=== PATIENT | male | born 1985 | race Caucasian/White ===

== ENCOUNTER 2019-07-22 08:30 | Outpatient (CLI) | payer BC, SELFPAY ==
--- NOTE | 2019-07-22 08:39 | EST_ITS ---
Patient Info Name: Elias Taylor Age: 34 years : 1985 Gender: Male Ht: 70 in Wt: 230 lbs BSA: 2.30 m2 Exam Date: 07/22/2019 8:53 AM Exam Location: [facility] Stress Patient Status: Outpatient Admit Date: 07/22/2019 Staff Ordering Physician: Swapnil Martin DO Attending Provider: Swapnil Martin DO Exercise Technologist: Brenda Devi RDCS Exercise Physician: Swapnil Martin DO Exam Type: CA stress test treadmill Study Info Indications R07.89 - Other chest pain A treadmill exercise stress test was performed. History/Risk Factors Hypertension: Yes Summary 1. 1. Negative Don exercise stress test for ischemic ST changes by ECG criteria. 2. 2. Good functional capacity, achieving 12 METs of workload. 3. 3. Appropriate HR response to exercise. 4. 4. Appropriate HR recovery at 1 minute post exercise. 5. 5. No imaging with stress testing. 6. 6. Patient informed of the above results. Protocol: Don Stress ECG Details Stage: REST Duration (min): 6 min : 2 sec Speed (mph): 0.0 Grade (%): 0 HR (bpm): 93 SBP (mmHg): 134 DBP (mmHg): 68 METS: --- Stage: REST Duration (min): 9 min : 18 sec Speed (mph): 0.0 Grade (%): 0 HR (bpm): --- SBP (mmHg): 134 DBP (mmHg): 68 METS: --- Stage: STAGE 1 Duration (min): 1 min : 0 sec Speed (mph): 1.7 Grade (%): 10 HR (bpm): 107 SBP (mmHg): 134 DBP (mmHg): 68 METS: --- Stage: STAGE 1 Duration (min): 2 min : 0 sec Speed (mph): 1.7 Grade (%): 10 HR (bpm): 116 SBP (mmHg): 134 DBP (mmHg): 68 METS: --- Stage: STAGE 1 Duration (min): 3 min : 0 sec Speed (mph): 1.7 Grade (%): 10 HR (bpm): 113 SBP (mmHg): 156 DBP (mmHg): 67 METS: --- Stage: STAGE 2 Duration (min): 1 min : 0 sec Speed (mph): 2.5 Grade (%): 12 HR (bpm): 124 SBP (mmHg): 156 DBP (mmHg): 67 METS: --- Stage: STAGE 2 Duration (min): 2 min : 0 sec Speed (mph): 2.5 Grade (%): 12 HR (bpm): 132 SBP (mmHg): 158 DBP (mmHg): 65 METS: --- Stage: STAGE 2 Duration (min): 3 min : 0 sec Speed (mph): 2.5 Grade (%): 12 HR (bpm): 139 SBP (mmHg): 158 DBP (mmHg): 65 METS: --- Stage: STAGE 3 Duration (min): 1 min : 0 sec Speed (mph): 3.4 Grade (%): 14 HR (bpm): 149 SBP (mmHg): 150 DBP (mmHg): 66 METS: --- Stage: STAGE 3 Duration (min): 2 min : 0 sec Speed (mph): 3.4 Grade (%): 14 HR (bpm): 154 SBP (mmHg): 150 DBP (mmHg): 66 METS: --- Stage: STAGE 3 Duration (min): 3 min : 0 sec Speed (mph): 3.4 Grade (%): 14 HR (bpm): 160 SBP (mmHg): 162 DBP (mmHg): 69 METS: --- Stage: STAGE 4 Duration (min): 1 min : 0 sec Speed (mph): 4.2 Grade (%): 16 HR (bpm): 168 SBP (mmHg): 162 DBP (mmHg): 69 METS: --- Stage: STAGE 4 Durat
== END 2019-07-22 08:31 | disposition home or self-care (01) ==
PROVIDERS: PCP Family Medicine; Visit Provider Internal Medicine Cardiovascular Disease
DX: R07.9 Chest pain, unspecified (principal)
CPT/HCPCS: 93017

== ENCOUNTER 2023-06-15 10:15 | Emergency (ER) | payer BC, SELFPAY ==
--- NOTE | ~2023-06-15 | CT_ITS ---
CT of the Abdomen and Pelvis: Indication: Hernia Technique: 2.5 mm axial scans were obtained through the abdomen and pelvis following intravenous adm inistration of 100 cc of Omnipaque 350. Dose reduction technique was used on this scan by utilizing a utomated exposure control and iterative reconstruction technique. The dose-length product (DLP) was 1 517.21 mGy-cm. Findings: Scans through the lung bases are unremarkable. The liver, spleen, pancreas, gallbladder, and adrenal glands are within normal limits. There is a kelsie y subtle hypodense area in the anterior aspect of the lower pole the left kidney (axial image 79). Th ere is a 2 cm ovoid hypodense area in the right renal cortex of (axial image 73). No evidence of aort ic aneurysm. No lymphadenopathy. No bowel obstruction or bowel wall thickening. There is no evidence to suggest acute appendicitis. Sm all fat-containing umbilical hernia noted. Images through the pelvis were performed. Urinary bladder unremarkable. No pelvic mass seen. No ascit es. Impression: Very subtle hypodense area in the left kidney inferiorly, as detailed above. Mass lesion or pyeloneph ritis are considerations. Correlate clinically. 2 cm ovoid hypodense area in the right renal cortex, which could reflect mass lesion. Pre and postcon trast MR should be considered for further evaluation. Small fat-containing umbilical hernia. Reviewed, dictated and finalized at [facility]. [employer] INSTRUCTOR Impression: Very subtle hypodense area in the left kidney inferiorly, as detailed above. Ma ss lesion or pyelonephritis are considerations. Correlate clinically. 2 cm ovoid hypodense area in the right renal cortex, which could reflect mass l esion. Pre and postcontrast MR should be considered for further evaluation. Small fat-containing umbilical hernia.
[2023-06-15 10:24] VITALS: BP 146/83; PULSE 84; RESP 16; TEMP 36.3; O2SAT 100
[2023-06-15 11:14] LABS: Appearance Urine Clear (Clear); Bacteria Urine None Seen /hpf; Bilirubin Urine Negative (Negative); Blood Urine Negative (Negative); Color Urine Yellow (Yellow); Glucose Urine UA Negative (Negative); Ketones Urine Negative (Negative); Leukocyte Esterase Ur Negative LEU/UL (Negative); Nitrate Urine Negative (Negative); Non Pathogenic Casts 0-2; Protein Urine 3+ mg/dL (Negative); RBC Urine 0-2 /hpf (0-2); Specific Grav Ur 1.015 (1.001-1.035); Squamous Epithelial Cell Urine None seen /hpf (Few); WBC Urine 0-5 /hpf; pH Urine 7.5 (5.0-9.0)
[2023-06-15 11:23] LABS: Add Urine Microscopic? YES
[2023-06-15 11:36] VITALS: BP 132/70; PULSE 87; RESP 15; O2SAT 99
[2023-06-15 11:59] LABS: Basophils Absolute Auto 0.1 K/mm3 (0.0-0.1); Basophils Percent Auto 0.9 % (0.2-1.2); Eosinophils Absolute Auto 0.1 K/mm3 (0-0.3); Eosinophils Percent Auto 0.9 % (0-4.4); Hematocrit 49.8 % (42.0-52.0); Hemoglobin 15.7 g/dL (14.0-18.0); Immature Granulocyte Absolute 0.03 K/mm3 (0.00-0.031); Immature Granulocyte Percent A 0.3 % (0-0.5); Lymphocytes Absolute Auto 1.84 K/mm3 (0.9-3.2); Lymphocytes Percent Auto 17.5 % (18.3-44.2); Mean Corpuscular HGB Conc 31.5 g/dl (32-36); Mean Corpuscular Hemoglobin 26.9 pg (26-34); Mean Corpuscular Volume 85.3 fl (80-100); Mean Platelet Volume 9.7 fl (7.4-10.4); Monocytes Absolute Auto 0.8 K/mm3 (0.1-0.6); Monocytes Percent Auto 7.8 % (2.6-8.5); Neutrophils Absolute Auto 7.7 K/mm3 (1.3-6.7); Neutrophils Percent Auto 72.6 % (45.5-73.1); Platelet Count Result 293 k/mm3 (150-375); Red Blood Count 5.84 M/mm3 (4.6-6.20); Red Cell Distribution Width 12.9 % (11.5-14.5); White Blood Count 10.5 K/mm3 (4.5-10.0)
--- NOTE | 2023-06-15 12:00 | ED.ABDPAIN ---
HPI - Abdominal Pain General Chief Complaint: Abdominal Pain Stated Complaint: hernia Time Seen by Provider: 06/15/23 11:56 Source: patient and family Mode of arrival: ambulatory Limitations: no limitations History of Present Illness HPI narrative: 38 yo presents with concern for hernia. Patient was seen by PCP's (Dr Umanzor) JAILYN (Neelima) today for abdominal pain and they were concerned for hernia during their physical exam. Patient has been having pain for 5 days. LBM today, normal. No prior knowledge of a hernia but he noticed a bump on his abdomen Monday after/while picking up/lifting his son. No nausea or vomiting. Has not taken anything for pain. No prior abdominal surgeries except kidney biopsy for IgA nephropathy. Related Data Home Medications Medication Instructions Recorded Confirmed omega-3 fatty acids-fish oil 360 2 cap PO BID 09/14/22 06/15/23 mg-1,200 mg capsule (Fish Oil) Allergies Allergy/AdvReac Type Severity Reaction Status Date / Time Honey Bee Allergy Unknown Dyspnea / Uncoded 06/15/23 09:26 SOB PMFSH Past Medical History Medical History Anxiety CKD (chronic kidney disease) stage 3, GFR 30-59 ml/min Dyslipidemia Environmental allergies Hypertension IgA nephropathy determined by renal biopsy Insect bite of left hand Surgical History Surgical History No significant past surgical history Family History Family History Grandparent Family history of cardiovascular disease Family history of Alzheimer's disease Family history of coronary artery disease Family history of malignant neoplasm of breast in first degree relative Mother Family history of kidney disease Father Family history of seizure disorder Social History Social History (Updated 06/18/23 @ 11:53 by Lori Noel MD) Smoking status: Never smoker Second hand tobacco smoke exposure: No Alcohol intake: current Alcohol use details: Occasional Substance use: never Substance use type: does not use Lack of Transportation: No Lack of Food: Never True Current Housing: I Have Housing Concerned About Future Housing: No Difficulty Paying Gas/Electric Bills: No Difficulty Paying for Meds: No Currently Unemployed: No Education: High School Diploma/GED Difficulty w/ Childcare or Family Care: No Living arrangements: with family Additional living arrangements comments: , has a son Occupation/Education: occupation Gender identity (if verbalized by the patient): Male Spiritual care concerns: Yes Agree to blood products: Yes Exam Narrative: GENERAL: Well-appearing, well-nourished, and in no acute distress. HEAD: Normocephalic, atraumatic. EYES: Non injected, non icteric ENT: Nares clear, no rhinorrhea or epistaxis. NECK: Supple. CHEST: Speakign in full sentences. No respiratory distress. HEART: Regular rate and rhythm. . ABDOMEN: Soft, obese. nondistended. Tenderness to palpation along LUQ which causes guarding. No overlying skin changes/bruising. Appropriately tympanic. EXTREMITIES: Normal range of motion. No edema. SKIN: Warm, dry, no rash. NEURO: No focal deficits. Alert and oriented x3. PSYCH: Normal mood and affect. Course Vital Signs Vital signs: Vital Signs Temperature 97.3 F L 06/15/23 10:24 Pulse Rate 84 06/15/23 10:24 Respiratory Rate 16 06/15/23 10:24 Blood Pressure 146/83 H 06/15/23 10:24 Pulse Oximetry 100 06/15/23 10:24 Temperature 97.3 F L 06/15/23 10:24 Pulse Rate 88 06/15/23 13:58 Respiratory Rate 18 06/15/23 13:58 Blood Pressure 130/80 06/15/23 13:58 Pulse Oximetry 98 06/15/23 13:58 MDM - Abdominal Pain MDM Narrative Medical decision making narrative: Patient presents from PCP after concern for a hernia. Patient started havin
[2023-06-15 12:10] LABS: Alanine Aminotransferase 41 U/L (6-50); Albumin Level 4.5 g/dL (3.5-5.1); Alkaline Phosphatase 65 U/L (38-126); Anion Gap 7 mmol/L (8-16); Aspartate Amino Transferase 31 U/L (17-59); Bilirubin,Total 0.7 mg/dL (0.2-1.3); Blood Urea Nitrogen 20 mg/dL (9-20); Carbon Dioxide 27 mmol/L (22-30); Chloride 102 mmol/L (98-107); Estimated CRCL calculation 96 ml/min; Estimated Glomerular Filt Rate > 60; Glucose 106 mg/dL (65-110); Lipase 99 U/L (23-300); Potassium 4.3 mmol/L (3.4-5.0); Sodium 136 mmol/L (137-145)
[2023-06-15 13:58] VITALS: BP 130/80; PULSE 88; RESP 18; O2SAT 98
== END 2023-06-15 14:00 | disposition home or self-care (01) ==
PROVIDERS: Student in an Organized Health Care Education/Training Program; Emergency Provider Student in an Organized Health Care Education/Training Program; PCP Family Medicine
DX: K42.9 Umbilical hernia without obstruction or gangrene (principal); R80.9 Proteinuria, unspecified; N28.9 Disorder of kidney and ureter, unspecified; I12.9 Hypertensive chronic kidney disease with stage 1 through stage 4 chronic kidney disease, or unspecified chronic kidney disease; N18.30 Chronic kidney disease, stage 3 unspecified; E78.5 Hyperlipidemia, unspecified; F41.9 Anxiety disorder, unspecified
CPT/HCPCS: 36415; 74177; 80053; 81001; 83690; 85025; 99284; Q9967

== ENCOUNTER 2024-02-13 10:45 | Emergency (ER) | payer BC, SELFPAY ==
--- NOTE | ~2024-02-13 | XR_ITS ---
EXAMINATION: XR chest 2V DATE: 02/13/2024 11:27 INDICATION: Palpitations. TECHNIQUE: Frontal and lateral views of the chest were obtained. COMPARISON: Chest 2 views 03/13/2018, CT abdomen and pelvis 06/15/2023 FINDINGS: There is no pneumonia, pleural effusion, or pneumothorax. The heart size is normal. IMPRESSION: 1. No acute cardiopulmonary disease. Reviewed, dictated and finalized at location [facility]. [facility]
[2024-02-13 10:49] VITALS: BP 156/69; PULSE 78; RESP 16; TEMP 36.6; O2SAT 98
--- NOTE | 2024-02-13 10:49 | ECG_ITS ---
Test Date: 2024-02-13 10:55:40 Measurements Intervals [place] Rate: 98 P: 21 NE: 116 QRS: 66 QRSD: 98 T: 13 QT: 341 QTc: 436 Interpretive Statements SINUS RHYTHM ATRIAL PREMATURE COMPLEXES MINIMAL Q WAVES- INFERIOR LEADS BORDERLINE ST-T WAVE ABNORMALITY- INFERIOR LEADS BORDERLINE ECG No previous ECG available for comparison Electronically Signed On 02-13-2024 11:31:15 [facility] by Swapnil Martin D.O.
[2024-02-13 10:55] VITALS: PULSE 95
[2024-02-13 11:06] LABS: Basophils Absolute Auto 0.1 K/mm3 (0.0-0.1); Basophils Percent Auto 0.8 % (0.2-1.2); Eosinophils Absolute Auto 0.1 K/mm3 (0-0.3); Eosinophils Percent Auto 0.7 % (0-4.4); Hematocrit 48.7 % (42.0-52.0); Hemoglobin 16.3 g/dL (14.0-18.0); Immature Granulocyte Absolute 0.04 K/mm3 (0.00-0.031); Immature Granulocyte Percent A 0.4 % (0-0.5); Lymphocytes Absolute Auto 2.11 K/mm3 (0.9-3.2); Lymphocytes Percent Auto 21.7 % (18.3-44.2); Mean Corpuscular HGB Conc 33.5 g/dl (32-36); Mean Corpuscular Hemoglobin 28.1 pg (26-34); Mean Corpuscular Volume 83.8 fl (80-100); Mean Platelet Volume 9.8 fl (7.4-10.4); Monocytes Absolute Auto 0.7 K/mm3 (0.1-0.6); Monocytes Percent Auto 7.1 % (2.6-8.5); Neutrophils Absolute Auto 6.7 K/mm3 (1.3-6.7); Neutrophils Percent Auto 69.3 % (45.5-73.1); Platelet Count Result 286 k/mm3 (150-375); Red Blood Count 5.81 M/mm3 (4.6-6.20); Red Cell Distribution Width 12.7 % (11.5-14.5); White Blood Count 9.7 K/mm3 (4.5-10.0)
--- NOTE | 2024-02-13 11:08 | ED.ARRPALP ---
HPI - Arrhythmia/Palpitations General Chief Complaint: Arrhythmia/Palpitations Stated Complaint: hard heartbeats Time Seen by Provider: 02/13/24 10:49 Source: patient Mode of arrival: ambulatory Limitations: no limitations History of Present Illness HPI narrative: Patient is a 38-year-old male, with PMH of IgA nephropathy (sees Dr. Suarez), who presents to the ED with report of palpitations. Patient reports he has been having intermittent heart palpitations, described as though he will have a hard heart beat every once in a while followed by a short pause. He denies feeling as though his heart is racing. He states he was evaluated for similar palpitations several years ago by Dr. Martin and underwent cardiac stress testing, Holter monitor without significant findings. He is currently on diltiazem 420 mg daily for palpitations. He began noticing the palpitations again more frequently last night into today. Denies significant aggravating factors. Denies chest pain, shortness breath, recent cough or cold symptoms, fevers, lower extremity pain or swelling. Related Data Home Medications Medication Instructions Recorded Confirmed omega-3 fatty acids-fish oil 360 2 cap PO BID 09/14/22 09/23/23 mg-1,200 mg capsule (Fish Oil) Allergies Allergy/AdvReac Type Severity Reaction Status Date / Time Honey Bee Allergy Unknown Dyspnea / Uncoded 02/13/24 10:57 SOB Review of Systems Review of Systems: All systems reviewed & are unremarkable except as noted in HPI. All systems reviewed & are unremarkable except as noted in HPI and below PMFSH Past Medical History Medical History Anxiety CKD (chronic kidney disease) stage 3, GFR 30-59 ml/min Dyslipidemia Environmental allergies Hypertension IgA nephropathy determined by renal biopsy Insect bite of left hand Surgical History Surgical History No significant past surgical history Family History Family History Grandparent Family history of cardiovascular disease Family history of Alzheimer's disease Family history of coronary artery disease Family history of malignant neoplasm of breast in first degree relative Mother Family history of kidney disease Father Family history of seizure disorder Social History Social History Smoking status: Never smoker Second hand tobacco smoke exposure: No Alcohol intake: current Alcohol use details: Occasional Substance use: never Substance use type: does not use Do You Feel Safe in your Home?: Yes Lack of Transportation: No Lack of Food: Never True Current Housing: I Have Housing Concerned About Future Housing: No Difficulty Paying Gas/Electric Bills: No Difficulty Paying for Meds: No Currently Unemployed: No Education: High School Diploma/GED Difficulty w/ Childcare or Family Care: No Living arrangements: with family Additional living arrangements comments: , has a son Occupation/Education: occupation Gender identity (if verbalized by the patient): Male Spiritual care concerns: Yes Agree to blood products: Yes Exam Narrative: GENERAL: Well appearing, obese with BMI of 35.7, non-toxic, in no acute distress. HEAD: Normocephalic, atraumatic. RESPIRATORY: Airway patent, respirations nonlabored. Clear to auscultation bilaterally, no rales, rhonchi, wheezing. CARDIOVASCULAR: Regular rate and rhythm without murmurs. Intermittent ectopy noted on monitoring engineer and with auscultation. MUSCULOSKELETAL: Moves all extremities. No gross deformities. SKIN: Warm, dry, normal color. NEURO: A&O X3. Speech clear. PSYCHIATRIC: Appropriate mood and affect. Normal interaction. Course Vital Signs Vital signs: Vital Signs Temperature 97.8 F 02/13/24 10:49 Pulse Rate 78 02/13/24 10:49 Respiratory Rate 16 02/13/24 10:49 Blood Pressure 156/69 H 02/13/24 10:49 Pulse Oximetry 98 02/13/24 10:49 Temperature 97.8 F 02/13/24 10:49 Pulse Rate 82 02/13/24 12:22 Respiratory Rate 18 02/13/24 12:22 Blood Pressure 127/71 02/13/24 12:22 Pulse Oximetry 97 02/13/24 12:22 MDM - Arrhythmia/Palpitations MDM Narrative Medical decision making narrative: Patient presents to ED with palpitations. History of similar several years ago and underwent cardiac workup which was fairly unremarkable. Currently on Diltiazem. Vital signs are stable upon arrival. Heart rate is stable. On auscultation, I was able to appreciate ectopy, which correlated with ectopy seen on monitoring engineer and correlated with patient's symptoms. Frequent PACs were noted on patient's EKG. Discussed this with patient. Laboratory studies were obtained and fairly unremarkable. Stable electrolytes. Magnesium was borderline low at 1.7. Replaced IV. Troponin was undetectable. TSH WNL. Discussed case with Dr. Martin, cardiology, who patient has seen for these palpitations in the past. Agreed with plan for a repeat Holter monitor to determine ectopy burden, potential for future ablation. Recommended to have patient follow-up in office for evaluation of this. Patient is in agreement with this. He was given 1 L fluid bolus in the ED and is feeling significantly better on re-evaluation. He states palpitations have decreased in frequency/severity. He feels comfortable going home at this time. Discussed strict return precautions. He agrees with plan. Discharged in stable condition. Vital signs stable at time of D/C. Medical Records Attestation: I reviewed the patient's medical records. Lab Data Attestation: I reviewed the patient's lab results. 02/13/24 11:01 02/13/24 11:01 Labs: Lab Results 02/13/24 Range/Units 11:01 WBC 9.7 (4.5-10.0) K/mm3 RBC 5.81 (4.6-6.20) M/mm3 Hgb 16.3 (14.0-18.0) g/dL Hct 48.7 (42.0-52.0) % MCV 83.8 (80-100) fl MCH 28.1 (26-34) pg MCHC 33.5 (32-36) g/dl RDW 12.7 (11.5-14.5) % Plt Count 286 (150-375) k/mm3 MPV 9.8 (7.4-10.4) fl Immature Gran % (Auto) 0.4 (0-0.5) % Neut % (Auto) 69.3 (45.5-73.1) % Lymph % (Auto) 21.7 (18.3-44.2) % Sebastian % (Auto) 7.1 (2.6-8.5) % Eos % (Auto) 0.7 (0-4.4) % Baso % (Auto) 0.8 (0.2-1.2) % Lymph # (Auto) 2.11 (0.9-3.2) K/mm3 Sebastian # (Auto) 0.7 H (0.1-0.6) K/mm3 Eos # (Auto) 0.1 (0-0.3) K/mm3 Baso # (Auto) 0.1 (0.0-0.1) K/mm3 Abs Immat Gran (auto) 0.04 H (0.00-0.031) K/mm3 Absolute Neuts (auto) 6.7 (1.3-6.7) K/mm3 Absolute Nucleated RBC 0.000 (0.0-0.012) K/mm3 Nucleated RBC % 0.0 (0.0-0.2) % PT 13.2 (11.1-14.7) Seconds INR 1.0 APTT 28.7 (22.3-36.8) Seconds Sodium 133 L (137-145) mmol/L Potassium 4.0 (3.4-5.0) mmol/L Chloride 97 L (98-107) mmol/L Carbon Dioxide 26 (22-30) mmol/L Anion Gap 10 (4-12) mmol/L BUN 23 H (9-20) mg/dL Creatinine 1.30 (0.7-1.3) mg/dL Estim Creat Clear Calc 88 ml/min Estimated GFR > 60 (59 - ) Glucose 111 H (65-110) mg/dL Calcium 9.6 (8.4-10.2) mg/dL Magnesium 1.7 (1.6-2.3) mg/dL Total Bilirubin 1.3 (0.2-1.3) mg/dL AST 37 (17-59) U/L ALT 43 (6-50) U/L Alkaline Phosphatase 61 (38-126) U/L Troponin I < 0.012 (0.000-0.034) ng/mL Total Protein 9.0 H (6.3-8.2) g/dL Albumin 4.7 (3.5-5.1) g/dL Lipase 143 (23-300) U/L TSH (Reflex) 1.310 (0.465-4.68) uIU/mL Imaging Data Attestation: I personally reviewed and interpreted this imaging study as follows: Radiologist's impression: ITS Impressions Chest X-Ray 02/13/24 11:28 IMPRESSION: 1. No acute cardiopulmonary disease. ECG Data EKG #1: Attestation: I personally reviewed and interpreted this ECG as follows: ECG completion date: 02/13/24 ECG completion time: 10:55 EKG Interpretation: normal rate (98), sinus rhythm (short VA), PACs and non-specific ST changes Discharge Plan Discharge Clinical Impression: Heart palpitations, PAC (premature atrial contraction) Patient Disposition: Home, Self-Care Condition: Stable Instructions: Antibiotic Form, Heart Palpitations (ED), Premature Ventricular Contractions (ED), Premature Atrial Contractions (ED) Additional Instructions: Continue home medications. Follow-up with Dr. Martin for further evaluation of palpitations. He would like to see you in office and repeat the heart monitor. Call office to make appointment. He was made aware of your ED visit. Stay well-hydrated. Return to the ED if you experience worsening or severe symptoms, chest pain, shortness of breath, severe dizziness/lightheadedness, passing out, unable to keep down food or drink, or any other symptoms of concern. Prescriptions: No Action omega-3 fatty acids-fish oil [Fish Oil] 360-1,200 mg capsule 2 cap PO BID epinephrine 0.3 mg/0.3 mL syringe 0.3 ml IM ONCE Qty: 2 2RF Rx Instructions: as a single dose diltiazem HCl 360 mg capsule,extended release 24hr 420 mg PO DAILY Qty: 90 3RF pravastatin 40 mg tablet See Rx Instructions .ROUTE .COMPLEX Qty: 90 3RF Dose Instruction: Take 1 tablet by mouth once daily Rx Instructions: Take 1 tablet by mouth once daily chlorthalidone 25 mg tablet 25 mg PO DAILY Qty: 90 3RF irbesartan [Avapro] 300 mg tablet 300 mg PO DAILY Qty: 90 3RF Follow-up/Referrals: Pamela Umanzor MD [Primary Care Provider] - Swapnil Martin DO [Physician] - (CARDIOLOGY) Time of Disposition: 12:24
[2024-02-13] MEDS: ASPIRIN 81 MG CHEWABLE TABLET 324 MG PO (11:11)
[2024-02-13] MEDS: SODIUM CHLORIDE 0.9% IV 1,000 ML 999 ML IV CONT (11:14)
[2024-02-13 11:15] LABS: Prothrombin Time 13.2 Seconds (11.1-14.7)
[2024-02-13 11:16] LABS: Partial Thromboplastin Time 28.7 Seconds (22.3-36.8)
[2024-02-13 11:26] VITALS: BP 112/58; PULSE 82; RESP 15; O2SAT 97
--- NOTE | 2024-02-13 11:26 | PC.NURSE ---
pt to XRAY via stretcher at this time
[2024-02-13 11:28] LABS: Alanine Aminotransferase 43 U/L (6-50); Albumin Level 4.7 g/dL (3.5-5.1); Alkaline Phosphatase 61 U/L (38-126); Anion Gap 10 mmol/L (4-12); Aspartate Amino Transferase 37 U/L (17-59); Bilirubin,Total 1.3 mg/dL (0.2-1.3); Blood Urea Nitrogen 23 mg/dL (9-20); Calcium 9.6 mg/dL (8.4-10.2); Carbon Dioxide 26 mmol/L (22-30); Chloride 97 mmol/L (98-107); Estimated CRCL calculation 88 ml/min; Estimated Glomerular Filt Rate > 60; Glucose 111 mg/dL (65-110); Lipase 143 U/L (23-300); Sodium 133 mmol/L (137-145)
[2024-02-13 11:31] LABS: Troponin I < 0.012 ng/mL (0.000-0.034)
[2024-02-13 11:46] LABS: Magnesium 1.7 mg/dL (1.6-2.3)
[2024-02-13] MEDS: MAGNESIUM SULF 1 GM/D5W 100 ML 1 GM/100 ML BAG IVPB (12:19)
[2024-02-13 12:22] VITALS: BP 127/71; PULSE 82; RESP 18; O2SAT 97
[2024-02-13 13:03] VITALS: BP 105/77; PULSE 72; RESP 14; O2SAT 94
[2024-02-13 13:20] VITALS: BP 120/87; PULSE 80; RESP 18; O2SAT 98
== END 2024-02-13 13:21 | disposition home or self-care (01) ==
PROVIDERS: Emergency Provider Physician Assistant; PCP Family Medicine
DX: R00.2 Palpitations (principal); I49.1 Atrial premature depolarization; N18.30 Chronic kidney disease, stage 3 unspecified; I12.9 Hypertensive chronic kidney disease with stage 1 through stage 4 chronic kidney disease, or unspecified chronic kidney disease; E78.5 Hyperlipidemia, unspecified; Z79.899 Other long term (current) drug therapy
CPT/HCPCS: 36415; 71046; 80053; 83690; 83735; 84443; 84484; 85025; 85610; 85730; 93005; 96361; 96365; 99284; A9270; J3475; J7030

== ENCOUNTER 2024-03-13 10:33 | Outpatient (CLI) | payer BC, SELFPAY ==
--- NOTE | 2024-03-13 10:38 | EST_ITS ---
Patient Info Name: Elias Taylor Age: 39 years : 1985 Gender: Male Ht: 70 in Wt: 240 lbs BSA: 2.36 m2 HR: 97 bpm BP: 129 / 75 mmHg Exam Date: 03/13/2024 10:58 AM Exam Location: [facility] Patient Status: Outpatient Admit Date: 03/13/2024 Staff Ordering Physician: Swapnil Martin DO Attending Provider: Swapnil Martin DO Exercise Technologist: Juanita Acosta RDCS Exercise Physician: Swapnil Martin DO Exam Type: CA stress test treadmill Study Info A treadmill exercise stress test was performed. History/Risk Factors Hypertension: Yes Summary 1. 1. Negative Don exercise stress test for ischemic ST changes by ECG criteria. 2. 2. Good functional capacity, achieving 12 METs of workload. 3. 3. Appropriate HR response to exercise. 4. 4. Appropriate HR recovery at 1 minute post exercise. 5. 5. No imaging with stress testing. 6. 6. Patient informed of the above results. Protocol: Don Stress ECG Details Stage: REST Duration (min): 1 min : 20 sec Speed (mph): 0.0 Grade (%): 0 HR (bpm): 96 SBP (mmHg): 129 DBP (mmHg): 75 METS: --- Stage: REST Duration (min): 3 min : 34 sec Speed (mph): 0.0 Grade (%): 0 HR (bpm): 106 SBP (mmHg): 129 DBP (mmHg): 75 METS: --- Stage: STAGE 1 Duration (min): 1 min : 0 sec Speed (mph): 1.7 Grade (%): 10 HR (bpm): 108 SBP (mmHg): 129 DBP (mmHg): 75 METS: --- Stage: STAGE 1 Duration (min): 2 min : 0 sec Speed (mph): 1.7 Grade (%): 10 HR (bpm): 117 SBP (mmHg): 129 DBP (mmHg): 75 METS: --- Stage: STAGE 1 Duration (min): 3 min : 0 sec Speed (mph): 1.7 Grade (%): 10 HR (bpm): 119 SBP (mmHg): 149 DBP (mmHg): 68 METS: --- Stage: STAGE 2 Duration (min): 1 min : 0 sec Speed (mph): 2.5 Grade (%): 12 HR (bpm): 117 SBP (mmHg): 149 DBP (mmHg): 68 METS: --- Stage: STAGE 2 Duration (min): 2 min : 0 sec Speed (mph): 2.5 Grade (%): 12 HR (bpm): 130 SBP (mmHg): 145 DBP (mmHg): 64 METS: --- Stage: STAGE 2 Duration (min): 3 min : 0 sec Speed (mph): 2.5 Grade (%): 12 HR (bpm): 139 SBP (mmHg): 145 DBP (mmHg): 64 METS: --- Stage: STAGE 3 Duration (min): 1 min : 0 sec Speed (mph): 3.4 Grade (%): 14 HR (bpm): 142 SBP (mmHg): 144 DBP (mmHg): 63 METS: --- Stage: STAGE 3 Duration (min): 2 min : 0 sec Speed (mph): 3.4 Grade (%): 14 HR (bpm): 147 SBP (mmHg): 144 DBP (mmHg): 63 METS: --- Stage: STAGE 3 Duration (min): 3 min : 0 sec Speed (mph): 3.4 Grade (%): 14 HR (bpm): 151 SBP (mmHg): 143 DBP (mmHg): 66 METS: --- Stage: STAGE 4 Duration (min): 1 min : 0 sec Speed (mph): 4.2 Grade (%): 16 HR (bpm): 162 SBP (mmHg): 143 DBP (mmHg): 66 METS: --- Stage: STAGE 4 Duration (min): 1 min : 0 sec Speed (mph): 4.2 Grade (%): 16 HR (bpm): 162 SBP (mmHg): 143 DBP (mmHg): 66 METS: --- Stage: RECOVERY Duration (min): 0 min : 59 sec Speed (mph): 0.0 Grade (%): 0 HR (bpm): 139 SBP (mmHg): 124 DBP (mmHg): 62 METS: --- Stage: RECOVERY Duration (min): 1 min : 59 sec Speed (mph): 0.0 Grade (%): 0 HR (bpm): 120 SBP (mmHg): 124 DBP (mmHg): 62 METS: --- Stage: RECOVERY Duration (min): 2 min : 59 sec Speed (mph): 0.0 Grade (%): 0 HR (bpm): 107 SBP (mmHg): 139 DBP (mmHg): 59 METS: --- Stage: RECOVERY Duration (min): 3 min : 4 sec Speed (mph): 0.0 Grade (%): 0 HR (bpm): 107 SBP (mmHg): 139 DBP (mmHg): 59 METS: --- Rest HR: 106 bpm Peak HR: 162 bpm Rest Sys BP: 129 mmHg Peak Sys BP: 149 mmHg Max Pred HR: 183 bpm % Max Pred HR: 89 % Target HR: 156 bpm Max RPP: 24,138 bpm*mmHg Lerma Score: -14 Termination Reason: Reached target heart rate or workload Cardiac Symptoms: Shortness of breath Max ST Seg Deviation: -4.90 mm Total Time: 10 min : 1 sec Rest Clayton BP: 75 mmHg Peak [place] BP: 68 mmHg Angina Score: None Total METS: 12.1 Resting ECG Sinus rhythm, inferior infarct, age indeteterminate. Stress ECG No ST changes. Arrhythmias None. Report Signatures
== END 2024-03-13 10:34 | disposition home or self-care (01) ==
LOC: ANHCARD 10:34
PROVIDERS: PCP Family Medicine; Visit Provider Internal Medicine Cardiovascular Disease
DX: R07.9 Chest pain, unspecified (principal)
CPT/HCPCS: 93017

== ENCOUNTER 2024-03-29 09:30 | Outpatient (CLI) | payer BC, SELFPAY ==
--- NOTE | 2024-03-29 09:49 | ECHO_ITS ---
Patient Info Name: Elias Taylor Age: 39 years : 1985 Gender: Male Ht: 70 in Wt: 240 lbs BSA: 2.36 m2 HR: 87 bpm BP: 141 / 84 mmHg Technical Quality: Fair Exam Date: 03/29/2024 10:02 AM Exam Location: Echo Lab Patient Status: Outpatient Admit Date: 03/29/2024 Staff Ordering Physician: Swapnil Martin DO [employer] Technician: Donna Schmidt RDCS Attending Provider: Swapnil Martin DO Referring Physician: Mario WASHINGTON; Exam Type: CA echo doppler color flow Study Info Indications - Palpitations Complete two-dimensional, color flow and Doppler transthoracic echocardiogram is performed. History/Risk Factors Hypertension: Yes Summary 1. Complete two-dimensional, color flow and Doppler transthoracic echocardiogram is performed. 2. Left ventricular chamber dimension is normal. 3. Left ventricular systolic function is normal, estimated at 60-65%. 4. There is mild concentric increased left ventricular wall thickness. 5. The left ventricular diastolic function is normal. 6. E/e' 5 is not elevated. 7. Left atrial chamber dimension is mildly enlarged. 8. Mild pulmonary hypertension, estimated pulmonary arterial systolic pressure is 48 mmHg. Left Ventricle E/e' 5 is not elevated. Left ventricular chamber dimension is normal. Left ventricular systolic function is normal, estimated at 60-65%. There is mild concentric increased left ventricular wall thickness. The left ventricular diastolic function is normal. Right Ventricle Right ventricular systolic function is normal and with normal TAPSE 2.2 cm. Right ventricular chamber dimension is normal. Left Atria Left atrial chamber dimension is mildly enlarged. Right Atria Right atrial chamber dimension is normal. Aortic Valve The aortic valve is trileaflet. There is no aortic valve stenosis. There is no aortic valve regurgitation. Pulmonic Valve There is no pulmonic regurgitation. Mitral Valve There is no mitral valve stenosis. There is no mitral valve regurgitation. Tricuspid Valve There is no tricuspid valve regurgitation. Mild pulmonary hypertension, estimated pulmonary arterial systolic pressure is 48 mmHg. Pericardium/Pleural There is no pericardial effusion. Inferior Vena Cava Normal inferior vena cava with >50% collapse upon inspiration consistent with normal right atrial pressure, 5 mmHg. Aorta The aortic root size at the sinus of Valsalva is normal. Left Ventricular Outflow Tract Name Value Normal LVOT 2D LVOT Diameter 2.3 cm LVOT Doppler LVOT Peak Gradient 4 mmHg LVOT Mean Gradient 3 mmHg LVOT VTI 21 cm LVOT VTI/AV VTI Ratio 0.8 LVOT Stroke Volume 86 ml LVOT CO 6.9 l/min LVOT CI 2.9 l/min/m2 Pulmonic Valve Name Value Normal RVOT Doppler RVOT Peak Gradient 3 mmHg PV Doppler PV Peak Gradient 5 mmHg PV Regurgitation Doppler [place] Peak End Diastolic Velocity 83 cm/s Mitral Valve Name Value Normal MV Doppler MV Peak Gradient 3 mmHg MV Mean Gradient 1 mmHg MV Decel [place] 529 cm/s2 MV PHT 39 ms MV Area (PHT) 5.6 cm2 4.0-5.0 MV Area (Cont Eq VTI) 4.1 cm2 MV Diastolic Function MV E Peak Velocity 71 cm/s MV A Peak Velocity 63 cm/s MV E/A 1.1 MV Decel Time 135 ms MV Annular TDI MV E/e' (Septal) 5.8 <=8.0 MV E/e' (Lateral) 5.1 <=8.0 MV E/e' (Average) 5.4 Tricuspid Valve Name Value Normal TV Regurgitation Doppler TR Peak Velocity 330 cm/s TR Peak Gradient 43 mmHg Estimated PAP/RSVP RA Pressure 5 mmHg <=5 PA Systolic Pressure 48 mmHg <36 RV Systolic Pressure 48 mmHg <36 Aorta Name Value Normal Ascending Aorta Ao Root Diameter (MM) 3.3 cm Ao Root Diam Index (MM) 1.4 cm/m2 Aortic Valve Name Value Normal AV Doppler AV Peak Velocity 127 cm/s AV Peak Gradient 6 mmHg AV Mean Gradient 4 mmHg AV VTI 27 cm AV Area (Cont Eq VTI) 3.2 cm2 >=3.0 AV Area (Cont Eq [place]) 3.7 cm2 AV Regurgitation 2D LVOT Area 4.0 cm2 Ventricles Name Value Normal LV Dimensions 2D/MM IVS Diastolic Thickness (2D) 1.2 cm 0.6-1.0 LVID Diastole (2D) 4.8 cm 4.2-5.8 LVIW Diastolic Thickness (2D) 1.2 cm 0.6-1.0 LVID Systole (2D) 3.1 cm 2.5-4.0 LVOT Diameter 2.3 cm LV Mass (2D Cubed) 216.82 g 88.00-224.00 LV Mass Index (2D Cubed) 92 g/m2 49-115 Relative Wall Thickness (2D) 0.51 LV Fractional Shortening/Ejection Fraction 2D/MM LV Fractional Shortening (2D) 36 % 25-43 LV EF (2D Teicholz) 65 % 52-72 LV Diastolic Volume (4C MOD) 128 ml LV EF (4C MOD) 61 % LV Diastolic Volume (2C MOD) 113 ml LV EF (2C MOD) 67 % LV Diastolic Volume (BP MOD) 121 ml 62-150 LV Diastolic Volume Index (BP MOD) 51 ml/m2 34-74 LV Systolic Volume (BP MOD) 44 ml 21-61 LV Systolic Volume Index (BP MOD) 19 ml/m2 11-31 LV EF (BP MOD) 64 % 52-72 LV Diastolic Length (4C) 8.3 cm LV Systolic Length (4C) 6.6 cm LV Stroke Volume (4C MOD) 78 ml Atria Name Value Normal LA Dimensions LA Dimension (MM) 4.2 cm 3.0-4.1 LA Volume (4C A-L) 77 ml LA Volume (BP A-L) 63 ml RA Dimensions RA Area (4C) 15.8 cm2 <=18.0 Report Signatures
== END 2024-03-29 09:31 | disposition home or self-care (01) ==
LOC: ANHCARD 09:31
PROVIDERS: PCP Family Medicine; Visit Provider Internal Medicine Cardiovascular Disease
DX: R00.2 Palpitations (principal); I51.7 Cardiomegaly; I27.20 Pulmonary hypertension, unspecified; I42.2 Other hypertrophic cardiomyopathy
CPT/HCPCS: 93306

== ENCOUNTER 2024-10-15 16:21 | Emergency (ER) | payer BC, SELFPAY ==
--- NOTE | 2024-10-15 16:23 | ED.SKABFB ---
HPI - Skin/Abscess/Foreign Bdy General Chief complaint: Skin/Abscess/Foreign Body Stated complaint: INSECT BITES Time Seen by Provider: 10/15/24 16:22 Source: patient Mode of arrival: ambulatory Limitations: no limitations History of Present Illness HPI narrative: Elias is a 39-year-old male patient presenting to the clinic today with complaints of possible insect bites to his bilateral lower extremities. Reports this occurred on the 11 of October. Has been applying coordinated and applying ice packs to the areas to help alleviate itching. States he does not know what type of bugs were biting him but he did feel insect biting him. Denies any fever, body aches, joint pain, or chills. States that the insect bite areas are painful and warm to touch. Related Data Home Medications ?Medication ?Instructions ?Recorded ?Confirmed ?Last Taken ?Type omega-3 fatty acids-fish oil 360 2 cap PO BID 09/14/22 05/03/24 Unknown History mg-1,200 mg capsule (Fish Oil) Allergies Allergy/AdvReac Type Severity Reaction Status Date / Time Honey Bee Allergy Unknown Dyspnea / Uncoded 09/25/24 15:25 SOB Review of Systems Review of Systems: Pertinent positives per HPI. Patient denies any fever, chills, headache, visual changes, dizziness, cough, runny nose, sore throat, shortness of breath, chest pain, palpitations, nausea, vomiting, diarrhea, constipation, abdominal pain, or any urinary issues. [facility] Past Medical History Medical History IgA nephropathy determined by renal biopsy Insect bite of left hand Anxiety Environmental allergies CKD (chronic kidney disease) stage 3, GFR 30-59 ml/min Dyslipidemia Hypertension Surgical History Surgical History No significant past surgical history Family History Family History Grandparent Family history of cardiovascular disease Family history of Alzheimer's disease Family history of coronary artery disease Family history of malignant neoplasm of breast in first degree relative Mother Family history of kidney disease Father Family history of seizure disorder Social History Social History Smoking status: Never smoker Second hand tobacco smoke exposure: No Alcohol intake: current Alcohol use details: Occasional Substance use: never Substance use type: does not use Do You Feel Safe in your Home?: Yes Lack of Transportation: No Lack of Food: Never True Current Housing: I Have Housing Concerned About Future Housing: No Difficulty Paying Gas/Electric Bills: No Difficulty Paying for Meds: No Currently Unemployed: No Education: High School Diploma/GED Difficulty w/ Childcare or Family Care: No Living arrangements: with family Additional living arrangements comments: , has a son Occupation/Education: occupation Gender identity (if verbalized by the patient): Male Spiritual care concerns: Yes Agree to blood products: Yes Comments At the time of my signature, I reviewed and agree with the nursing past medical, surgical, social, and family history. There is no relevant family history pertinent to the patient complaint. Exam Narrative: General: Well-developed, well nourished, in no apparent distress Head: Normocephalic, atraumatic. Cardio: Regular rate and rhythm, s1 and s2 normal, no murmur appreciated. Resp: Clear to auscultation bilaterally, no rhonchi, rales, wheezing or rubs. Integumentary: [place], warm, and dry, red, raised, itchy rash to the left posterior calf and to the right lateral lower leg near the ankle-bull's-eye appearing rash noted near the right ankle, mild erythema and tenderness to palpation with very mild induration Course Course Emergency Course: Portions of this record may have been created with voice recognition software. Level of Care: Express Care Visit Vital Signs Vital signs: Vital Signs Temperature 36.8 C 10/15/24 16:33 Pulse Rate 87 10/15/24 16:33 Respiratory Rate 16 10/15/24 16:33 Blood Pressure 141/78 H 10/15/24 16:33 Pulse Oximetry 100 10/15/24 16:33 Temperature 36.8 C 10/15/24 16:33 Pulse Rate 87 10/15/24 16:33 Respiratory Rate 16 10/15/24 16:33 Blood Pressure 141/78 H 10/15/24 16:33 Pulse Oximetry 100 10/15/24 16:33 Vital signs reviewed MDM - Skin/Abscess/Foreign Bdy MDM Narrative Medical decision making narrative: At the time of visit patient is resting comfortably on the exam table. Patient appears to be nontoxic. Plan: I suspect patient has insect bites-possibly tick bite to the right lower extremity. Will cover with doxycycline and triamcinolone cream. Supportive measures were discussed with the patient and they voiced understanding discharge instructions and agrees to treatment plan. Return precautions reviewed Differential Diagnosis Differential diagnosis: Likely abscess of skin or subcutaneous tissue, viral exanthem, dermatophytosis, urticaria, herpes zoster, allergic reaction to drug, cellulitis, eczema, insect bites, impetigo, contact dermatitis and other Discharge Plan Discharge Clinical Impression: Insect bite Patient Disposition: Home Condition: Stable Instructions: Antibiotic Form, Insect Bite or Sting (ED), General Allergic Reaction (ED) Additional Instructions: May be possible that this may have been a tick bite. You have a bull's eye type rash on the right leg Take doxycycline as prescribed Increase fluids and stay well hydrated Apply triamcinolone cream to the areas twice daily as directed May take Benadryl additionally as needed for itching May apply cool compresses to the affected area to help alleviate itching May take Tylenol as needed for pain Follow-up with your primary care doctor in 5-7 days if symptoms persist Patient Language: Czech Prescriptions: New triamcinolone acetonide 0.1 % cream 1 applic topical BID 7 Days Qty: 30 0RF doxycycline monohydrate 100 mg capsule 100 mg PO BID 7 Days Qty: 14 0RF No Action omega-3 fatty acids-fish oil [Fish Oil] 360-1,200 mg capsule 2 cap PO BID epinephrine 0.3 mg/0.3 mL syringe 0.3 ml IM ONCE Qty: 2 2RF Rx Instructions: as a single dose chlorthalidone 25 mg tablet See Rx Instructions .ROUTE .COMPLEX Qty: 90 0RF Dose Instruction: Take 1 tablet by mouth once daily Rx Instructions: Take 1 tablet by mouth once daily irbesartan 300 mg tablet See Rx Instructions .ROUTE .COMPLEX Qty: 90 3RF Dose Instruction: Take 1 tablet by mouth once daily Rx Instructions: Take 1 tablet by mouth once daily diltiazem HCl 420 mg capsule,extended release 24hr See Rx Instructions .ROUTE .COMPLEX Qty: 90 0RF Dose Instruction: Take 1 capsule by mouth once daily Rx Instructions: Take 1 capsule by mouth once daily pravastatin 40 mg tablet See Rx Instructions .ROUTE .COMPLEX Qty: 90 0RF Dose Instruction: Take 1 tablet by mouth once daily Rx Instructions: Take 1 tablet by mouth once daily Follow-up/Referrals: Pamela Umanzor MD [Primary Care Provider] - Time of Disposition: 16:39 Quality NIHSS Nursing Documentation ED NIHSS nursing documentation: reviewed/agree
[2024-10-15 16:33] VITALS: BP 141/78; PULSE 87; RESP 16; TEMP 36.8; O2SAT 100
== END 2024-10-15 16:40 | disposition home or self-care (01) ==
PROVIDERS: Emergency Provider Nurse Practitioner Family; PCP Family Medicine
DX: S80.861A Insect bite (nonvenomous), right lower leg, initial encounter (principal); W57.XXXA Bitten or stung by nonvenomous insect and other nonvenomous arthropods, initial encounter; I12.9 Hypertensive chronic kidney disease with stage 1 through stage 4 chronic kidney disease, or unspecified chronic kidney disease; N18.30 Chronic kidney disease, stage 3 unspecified; E78.5 Hyperlipidemia, unspecified
CPT/HCPCS: 99213; G0463

== ENCOUNTER 2024-12-03 11:23 | Outpatient (CLI) | payer BC, SELFPAY ==
--- NOTE | ~2024-12-03 | US_ITS ---
US renal BI 12/03/2024 11:43 Procedure: Realtime transabdominal ultrasound of the kidneys and bladder. Indication: Renal mass seen on recent CT examination. Comparison: CT dated 06/15/2023 Findings: Renal echotexture is normal bilaterally without hydronephrosis or renal calculus. There is a right renal cyst measuring 1.5 cm likely corresponding to hypodense mass seen on recent CT, most likely proteinaceous cyst. There is a 2.4 cm left renal cysts. The right kidney measures 12.2 cm and left kidney measures 9.5 cm. Bladder within normal limits. Impression: 1: Bilateral renal cysts. No solid masses to suggest malignancy. Reviewed, dictated and finalized at location O. Impression: 1: Bilateral renal cysts. No solid masses to suggest malignancy.
== END 2024-12-03 11:24 | disposition home or self-care (01) ==
LOC: MICIMG 11:25
PROVIDERS: PCP Internal Medicine Nephrology; Visit Provider Internal Medicine Nephrology
DX: N28.1 Cyst of kidney, acquired (principal); N02.8 Recurrent and persistent hematuria with other morphologic changes
CPT/HCPCS: 76770